=== PATIENT | female | born 1945 | race Caucasian/White ===

== ENCOUNTER 2016-06-15 20:39 | Emergency (ER) | payer MEDICARE ==
[2016-06-15] MEDS ORDERED: PANTOPRAZOLE SODIUM 40 MG VIAL IV ONE (20:57)
[2016-06-15] MEDS ORDERED: FENTANYL 100 MCG/2 ML VIAL ONE (20:57)
[2016-06-15] MEDS ORDERED: ONDANSETRON 4 MG/2ML 2 ML VIAL ONE (20:57)
[2016-06-15 21:04] LABS: ABSOLUTE NEUTROPHIL COUNT 5.5 K/mm3 (1.8-7.7); BASO % 0.2 % (0.2-1.0); EOS # 0.2 (0.0-0.5); EOS % 2.2 % (0.9-2.9); HEMATOCRIT 42.9 % (37.0-47.0); HEMOGLOBIN 13.7 gm/l (12.0-16.0); IMM NEUT% 0.5 % (0-1); LYMPH # 2.2 (1.0-4.8); LYMPH % 25.8 % (15-45); MEAN CORPUSCULAR HEMOGLOBIN 28.4 pg (27.0-31.0); MEAN CORPUSCULAR HGB CONC 31.9 g/dl (33.0-37.0); MEAN PLATELET VOLUME 11.9 fl (7.4-10.4); MONO # 0.6 (0.0-0.8); MONO % 6.5 % (4-12); NEUT % 64.8 % (43-75); PLATELET COUNT 199 K/mm3 (130-400); RED CELL DISTRIBUTION WIDTH 14.2 % (11.5-14.5)
[2016-06-15 21:19] LABS: ALB/GLOB RATIO 1.4 (>1.0); ALBUMIN 4.5 gm/dL (3.5-5.7); MAGNESIUM 1.8 mg/dL (1.9-2.7)
[2016-06-15] MEDS ORDERED: SODIUM CHLORIDE 0.9% 500 ML ONE (22:08)
[2016-06-15 23:21] LABS: SPECIFIC GRAVITY 1.015 (1.001-1.030); URINE BILIRUBIN NEGATIVE (NEGATIVE); URINE BLOOD NEGATIVE (NEGATIVE); URINE GLUCOSE (UA) NEGATIVE (NEGATIVE); URINE LEUKOCYTE ESTERASE NEGATIVE (NEGATIVE); URINE NITRITE NEGATIVE (NEGATIVE); URINE PROTEIN 1+ (NEGATIVE); URINE UROBILINOGEN NORMAL (0-1 mg/dl)
[2016-06-15 23:21] LABS: HEMATOCRIT 40.2 % (37.0-47.0); HEMOGLOBIN 12.7 gm/l (12.0-16.0)
[2016-06-15 23:23] LABS: URINE APPEARANCE CLEAR; URINE COLOR YELLOW
[2016-06-15 23:26] LABS: URINE BACTERIA FEW; URINE EPITHELIAL CELLS FEW /hpf; URINE RBC 0-1 /hpf; URINE WBC 0-1 /hpf
[2016-06-16] MEDS ORDERED: METOCLOPRAMIDE HCL 5 MG/ML 2ML VIAL ONE (00:01)
[2016-06-16] MEDS ORDERED: DIPHENHYDRAMINE HCL 50 MG/1 ML VIAL ONE (00:01)
[2016-06-16] MEDS ORDERED: KETOROLAC TROMETHAMINE 15 MG/ML VIAL ONE (00:01)
== END 2016-06-16 01:09 | disposition home or self-care (01) ==
LOC: ED 20:39
DX: K29.01 Acute gastritis with bleeding (principal); G43.809 Other migraine, not intractable, without status migrainosus
CPT/HCPCS: 83690; 85025; 80053; 85014; 85018; 83735; 84484; 81001; 96375 ×5; 96376; 99284 ×2; 96374; 96361; J1200; J3010; C9113; J2765; J1885; J2405; J7040